=== PATIENT | male | born 1990 | race African-American/Black ===

== ENCOUNTER 2016-12-04 21:00 | Emergency (ER) | payer OTHER ==
[~2016-12-04] VITALS: Ht 180.3 cm; Wt 74.8 kg
[~2016-12-04 21:00] MED LIST: VENTOLIN HFA18 GM IH
[2016-12-04] MEDS ORDERED: ULTRAM50 MG PO (22:58)
[2016-12-04 23:18] VITALS: BP 123/55
== END 2016-12-04 23:19 | disposition home or self-care (01) ==
LOC: EXP 21:00 → EME 21:00 → EXP 23:19
PROC: 2W39X1Z Immobilization of Left Upper Extremity using Splint (ICD-10-PCS; principal; 2016-12-04)
DX: S62.651A Nondisplaced fracture of middle phalanx of left index finger, initial encounter for closed fracture (principal); W20.8XXA Other cause of strike by thrown, projected or falling object, initial encounter; Y93.89 Activity, other specified
CPT/HCPCS: 73140; 99281; 99284

== ENCOUNTER 2017-01-27 10:08 | Emergency (ER) | payer OTHER ==
[~2017-01-27] VITALS: Ht 180.3 cm; Wt 69.5 kg
[~2017-01-27 10:08] MED LIST changes: +ULTRAM50 MG PO
[2017-01-27] MEDS ORDERED: MOTRIN800 MG PO (12:24)
[2017-01-27 13:27] VITALS: BP 128/74
== END 2017-01-27 13:29 | disposition home or self-care (01) ==
LOC: EME 10:08
DX: S80.12XA Contusion of left lower leg, initial encounter (principal); S80.11XA Contusion of right lower leg, initial encounter; S90.512A Abrasion, left ankle, initial encounter; V49.50XA Passenger injured in collision with unspecified motor vehicles in traffic accident, initial encounter; F17.200 Nicotine dependence, unspecified, uncomplicated
CPT/HCPCS: 73590; 99281; 99283